=== PATIENT | male | born 1950 ===

== ENCOUNTER 2019-02-10 14:51 | Outpatient (CLI) | payer OTHER, MEDICARE | END 2019-02-10 14:52 | disposition short-term general hospital (02) | LOC: EMS 14:51 | PROVIDERS: ATTEND Surgery | DX: M25.511 Pain in right shoulder (principal); S09.90XA Unspecified injury of head, initial encounter; V13.4XXA Pedal cycle driver injured in collision with car, pick-up truck or van in traffic accident, initial encounter; Y93.55 Activity, bike riding; Y92.414 Local residential or business street as the place of occurrence of the external cause | CPT/HCPCS: A0425; A0427 ==